=== PATIENT | female | born 1990 ===

== ENCOUNTER 2025-01-27 10:30 | Inpatient (IN) | payer OTHER ==
[~2025-01-27] VITALS: Ht 157.5 cm; Wt 54.4 kg
[2025-01-27 11:50] VITALS: BP 110/74
[2025-01-27 12:16] LABS: COVID-19 AG NEGATIVE (NEGATIVE)
[2025-01-27 13:51] LABS: RH POSITIVE
[2025-02-02] MEDS ORDERED: METRONIDAZOLE/SODIUM CHLORIDE 500 MG/100 ML PIGGYBACK IV ONE (09:30)
[2025-02-02] MEDS ORDERED: CEFOXITIN SODIUM 2,000 MG VIAL IV ONE (09:30)
[2025-02-02] MEDS ORDERED: OxyCODONE HCL 5 MG TABLET (ROXICODONE) PO PRN (10:00)
[2025-02-02] MEDS ORDERED: MORPHINE SULFATE 4 MG/ML CARTRIDGE IV PRN (10:00)
[2025-02-02] MEDS ORDERED: RINGERS SOLUTION,LACTATED 1,000 ML IV SCH (10:00)
[2025-02-02] MEDS ORDERED: KETOROLAC TROMETHAMINE 30 MG VIAL IV NR (10:06)
[2025-02-02] MEDS ORDERED: MORPHINE SULFATE 4 MG/ML VIAL IV ONE (11:40)
[2025-02-02] MEDS ORDERED: ACETAMINOPHEN 500 MG GEL..CAP PO SCH (12:00)
[2025-02-02 12:36] LABS: BASO % 0.3 % (0.1-1.2); EOS # 0.04 (0.04-0.54); EOS % 0.2 % (0.7-7.0); LYMPH # 1.28 (1.18-3.74); LYMPH % 7.1 % (19.3-53.1); MEAN PLATELET VOLUME 11.10 fl (9.4-12.4); MONO # 0.97 (0.24-0.82); MONO % 5.4 % (4.7-12.5); NEUT # 15.50 (1.56-6.13); NEUT % 86.4 % (34.0-71.1); RED CELL DISTRIBUTION WIDTH 12.7 % (11.6-14.4)
[2025-02-02 13:04] LABS: BUN CREA RATIO 10.0 (7.0-25.0); CREATININE SERUM 0.49 mg/dL (0.55-1.02); GFR 146.35; GLUCOSE FASTING 102.0 mg/dL (65-100); OSMOLALITY SERUM 277.0 MOSM/KG (275-295)
[2025-02-02 14:15] VITALS: BP 101/73; O2SAT 98
[2025-02-02] MEDS ORDERED: SIMETHICONE 125 MG CAPSULE PO SCH (17:00)
[2025-02-02] MEDS ORDERED: CEFAZOLIN SODIUM 1,000 MG VIAL IV SCH (17:00)
[2025-02-02] MEDS ORDERED: METOCLOPRAMIDE HCL 5 MG/ML VIAL IV SCH (17:00)
[2025-02-02] MEDS ORDERED: KETOROLAC TROMETHAMINE 30 MG VIAL IV SCH (17:00)
[2025-02-02] MEDS ORDERED: GABAPENTIN 300 MG CAPSULE PO SCH (21:00)
[2025-02-02] MEDS ORDERED: DOCUSATE SODIUM 100MG CAP PO SCH (21:00)
[2025-02-02] MEDS ORDERED: FAMOTIDINE/PF 20 MG/2 ML VIAL IV PUSH SCH (21:00)
[2025-02-02 21:04] VITALS: BP 106/71; O2SAT 98
[2025-02-03 01:35] VITALS: BP 103/73; O2SAT 100
[2025-02-03 07:03] LABS: BASO % 0.6 % (0.1-1.2); EOS # 0.12 (0.04-0.54); EOS % 1.5 % (0.7-7.0); LYMPH # 1.80 (1.18-3.74); LYMPH % 23.0 % (19.3-53.1); MEAN PLATELET VOLUME 11.30 fl (9.4-12.4); MONO # 0.72 (0.24-0.82); MONO % 9.2 % (4.7-12.5); NEUT # 5.10 (1.56-6.13); NEUT % 65.3 % (34.0-71.1); RED CELL DISTRIBUTION WIDTH 12.9 % (11.6-14.4)
[2025-02-03 07:45] LABS: BUN CREA RATIO 8.0 (7.0-25.0); CREATININE SERUM 0.38 mg/dL (0.55-1.02); GFR 196.26; GLUCOSE FASTING 65.0 mg/dL (65-100); OSMOLALITY SERUM 278.0 MOSM/KG (275-295)
[2025-02-03 08:00] VITALS: BP 115/80; O2SAT 98
[2025-02-03] MEDS ORDERED: CELECOXIB 200 MG CAPSULE PO SCH (09:00)
[2025-02-03] MEDS ORDERED: ENOXAPARIN SODIUM 40 MG/0.4 ML SYRINGE SUBCUTANEO SCH (09:00)
[2025-02-03] MEDS ORDERED: DOCUSATE SODIUM 100MG CAP PO NR (09:50)
[2025-02-03 16:00] VITALS: BP 106/71; O2SAT 100
[2025-02-03] MEDS ORDERED: DOCUSATE SODIUM 100MG CAP PO SCH (21:00)
[2025-02-04 01:12] VITALS: BP 105/62; O2SAT 97
[2025-02-04 08:17] VITALS: BP 98/66; O2SAT 100
== END 2025-02-04 13:00 | disposition home or self-care (01) | DRG 743 ==
LOC: O/R 02-02 10:29 → OB/GYN 02-02 10:30 → SURG 02-02 14:14 → OB/GYN 02-02 19:15 → SURG 02-04 13:00
PROVIDERS: Obstetrics & Gynecology; ADMIT Obstetrics & Gynecology Gynecologic Oncology; ATTEND Obstetrics & Gynecology Gynecologic Oncology
PROC: 0UT50ZZ Resection of Right Fallopian Tube, Open Approach (ICD-10-PCS; 2025-02-02)
PROC: 0UT00ZZ Resection of Right Ovary, Open Approach (ICD-10-PCS; 2025-02-02)
PROC: 07BC0ZZ Excision of Pelvis Lymphatic, Open Approach (ICD-10-PCS; 2025-02-02)
PROC: 0DBU0ZZ Excision of Omentum, Open Approach (ICD-10-PCS; 2025-02-02)
PROC: 3E1M38Z Irrigation of Peritoneal Cavity using Irrigating Substance, Percutaneous Approach (ICD-10-PCS; 2025-02-02)
PROC: 0UT90ZZ Resection of Uterus, Open Approach (ICD-10-PCS; principal; 2025-02-02 19:15)
DX: D25.1 Intramural leiomyoma of uterus (principal); D25.2 Subserosal leiomyoma of uterus; N72 Inflammatory disease of cervix uteri; D36.0 Benign neoplasm of lymph nodes